=== PATIENT | female | born 1980 | race Caucasian/White ===

== ENCOUNTER 2017-05-18 11:37 | Emergency (ER) | payer OTHER ==
[2017-05-18 12:35] LABS: BASOPHIL 0.1 % (0-2); EOSINOPHIL 2.7 % (0-5); HCT 38.4 % (37.0-47.0); HGB 13.3 g/dl (12.5-16.0); LYMPHOCYTE 34.3 % (15-48); MCH 30.6 pg (25.0-31.0); MCHC 34.6 g/dL (32.0-36.0); MCV 88.3 fL (78.0-100.0); MONOCYTE 3.6 % (0-12); MPV 11.9 fL (6.0-9.5); NEUTROPHIL 59.3 % (41-80); RBC 4.35 M/uL (4.20-5.40); RDW 13.7 % (11.5-14.0); WBC 6.8 K/uL (4.0-10.5)
[2017-05-18 12:59] LABS: PLT 38 K/uL (150-400)
[2017-05-18 13:09] LABS: INR 1.04 (0.9-1.2); PROTHROMBIN TIME 12.7 SECONDS (11.4-13.2); PTT 30.7 SECONDS (24.3-32.1)
[2017-05-18 13:15] LABS: CREATININE 0.7 mg/dL (0.5-1.0); POTASSIUM 3.6 mmol/L (3.5-5.1)
== END 2017-05-18 14:14 | disposition home or self-care (01) ==
LOC: FER 11:37
PROVIDERS: Emergency Medicine
DX: D69.6 Thrombocytopenia, unspecified (principal); F17.210 Nicotine dependence, cigarettes, uncomplicated; Z90.49 Acquired absence of other specified parts of digestive tract; Z79.899 Other long term (current) drug therapy
CPT/HCPCS: 36415; 80048; 83615; 85025; 85610; 85730; 99284